=== PATIENT | male | born 1935 | race Caucasian/White ===

== ENCOUNTER → 2017-07-04 | Outpatient (CLI) | payer OTHER ==
[~2017-07-04] MED LIST: ACET-1256 PO; ASPI81TA28 PO; ATV5 PO; FLEC100T21 PO; LVQ500 PO; METH1TAB66 PO; METO25TA3 PO; MULT-506 PO
--- NOTE | 2017-07-04 14:26 | DIAGNOSTIC IMAGING REPORT ---
(CHEST) THORAX WITHOUT CLINICAL HISTORY: R91.1 Solitary pulmonary [id number] COMPARISON STUDY: 01/24/2016 CT DOSE: 302.57 mGy.cm TECHNIQUE: CT of the thorax was performed from the thoracic inlet to the lung bases. Images are reviewed in the axial, sagittal, and coronal planes. IV contrast was not administered for this examination. A dose lowering technique was utilized adhering to the principles of ALARA. FINDINGS: Thyroid: Imaged portions of the thyroid gland are normal in appearance. Thoracic aorta: There is ectasia of the ascending thoracic aorta which measures 39 mm. Heart: There are minimal coronary artery calcifications. Lungs and pleural spaces: No pleural effusions are visualized. There is underlying pulmonary emphysema. There is biapical pleural and parenchymal scarring with areas of calcification. There is a stable 5 mm solid left lower lobe pulmonary nodule, as visualized in image #[id number]. There is a stable 10 mm pleural-based opacity within the right lower lobe as visualized in image #[id number]. This may represent focal atelectasis. There is a stable perifissural 9 x 3 mm right upper lobe nodule as visualized in image #[id number]. Mediastinum: There is no mediastinal lymphadenopathy. Neda: There is no evidence of pathologic hilar adenopathy given the limitations of a noncontrast study. Axilla: There is no evidence of pathologic axillary lymphadenopathy Upper abdomen: Partially visualized upper abdominal viscera is within normal limits. Skeletal structures: There are no lytic or blastic osseous lesions. IMPRESSION: 1. Pulmonary emphysema 2. Stable biapical pleural and parenchymal scarring with areas of calcification and traction bronchiectasis 3. Stable bilateral pulmonary nodules 4. Mild dilatation of the ascending thoracic aorta which measures 39 mm. This represents an increase from 36 mm as measured in January 2016 Electronically signed by: Gustavo Duvall M.D. 07/04/2017 2:24 PM Dictated Date/Time: 07/04/2017 2:17 PM
== END | disposition home or self-care (01) ==
LOC: C.CTS 13:43
PROVIDERS: ATTEND Internal Medicine
DX: R91.1 Solitary pulmonary nodule (principal); J43.9 Emphysema, unspecified

== ENCOUNTER 2017-12-02 13:11 | Emergency (ER) | payer OTHER ==
[~2017-12-02] VITALS: Ht 185.4 cm; Wt 73.0 kg
[2017-12-02] MEDS ORDERED: SODIUM CHLORIDE 0.9% 1000ML 1,000 ML IV SCH (13:22)
[2017-12-02 13:23] VITALS: TEMP 36.4; Ht 185.4 cm; Wt 73.0 kg
[2017-12-02 13:26] VITALS: O2SAT 93
--- NOTE | 2017-12-02 13:28 | EMERGENCY ROOM VISIT NOTE ---
History Report prepared by Bryanna: Sarkis Eduardo Under the Supervision of: Dr. Bryn Martinez M.D. First contact with patient: 13:13 Stated Complaint: DIZZINESS/HEADACHE History of Present Illness The patient is an 82 year old male who presents to the Emergency Room with complaints of an episode of dizziness occurring last night. The patient states that he developed dizziness last night and had difficulty walking and keeping his balance. He notes that his dizziness began last night when he stood up from a chair. He reports that he also has a headache and diaphoresis. The patient states that he feels as though he has vertigo despite having no prior history of vertigo. He notes that he does not feel as though the room is spinning and is not currently dizzy. He reports that he is not on any blood thinners. He rates his pain as a 6-7/10. Source of History: patient Onset: last night Position: head Symptom Intensity: 6-7/10 Quality: other (dizziness) Timing: other (an episode) Associated Symptoms: + headache, + diaphoresis Review of Systems See HPI for pertinent positives & negatives. A total of 10 systems reviewed and were otherwise negative. Past Medical & Surgical Medical Problems: (1) Hx-Testicular Malignancy (2) Hyperlipidemia Nec/Nos (3) Hyperplasia Of Prostate (4) Hypertension Nos (5) Hypothyroidism Nos (6) Personal History Of Pulmonary Embolism Social History Problems: (1) Hx-Venous Thrombosis&Embolism Family History Cancer Kidney disease Kidney stones Social History Smoking Status: Former Smoker Alcohol Use: none Marital Status: Housing Status: lives with family Occupation Status: retired Current/Historical Medications Scheduled Aspirin (Aspirin Ec), 81 MG PO DAILY Flecainide (Tambocor), 100 MG PO BID Metoprolol Succ (Toprol Xl) (Toprol-Xl), 25 MG PO DAILY Multivitamin (Multivitamin), 1 TAB PO DAILY Scheduled PRN Lorazepam (Ativan), 25 MG PO DAILY PRN for Anxiety Meclizine Hcl (Meclizine Hcl), 1 TAB PO TID PRN for Dizziness or Vertigo Allergies Coded Allergies: No Known Allergies (Verified , 08/26/13) Physical Exam Vital Signs Date Time Temp Pulse Resp B/P (MAP) Pulse Ox O2 Delivery O2 Flow Rate FiO2 12/02/17 15:48 59 96/63 95 12/02/17 14:33 70 116/63 90 Room Air 12/02/17 13:26 93 Room Air 12/02/17 13:23 36.4 58 145/79 95 Room Air 12/02/17 13:21 66 Physical Exam GENERAL: Awake, alert, well-appearing, in no acute distress HENT: Normocephalic, atraumatic. Oropharynx unremarkable. EYES: Normal conjunctiva. Sclera non-icteric. NECK: Supple. No nuchal rigidity. FROM. No JVD. RESPIRATORY: Clear to auscultation. CARDIAC: Regular rate, normal rhythm. Extremities warm and well perfused. Pulses equal. ABDOMEN: Soft, non-distended. No tenderness to palpation. No rebound or guarding. No masses. RECTAL: Deferred. MUSCULOSKELETAL: Chest examination reveals no tenderness. The back is symmetrical on inspection. 2in x 2in abrasion to the right side of back. There is no CVA tenderness to palpation. No joint edema. LOWER EXTREMITIES: Calves are equal size bilaterally and non-tender. No edema. No discoloration. NEURO: Normal sensorium. No sensory or motor deficits noted, ataxic when walking. SKIN: No rash or jaundice noted. Medical Decision & Procedures ER Provider Diagnostic Interpretation: Radiology results as stated below per my review and radiologist interpretation: HEAD WITHOUT CONTRAST (CT) FINDINGS: Car Wash Supervisor topogram: Unremarkable. Ventricles and sulci normal in size. Brain parenchyma normal in appearance with preserved elkins-white differentiation. No mass effect or midline shift. No hemorrhage or acute territorial infarct. No extra-axial fluid collection. Paranasal sinuses and mastoid air cells clear. Calvarium intact. IMPRESSION: 1. No acute intracranial abnormality. Electronically signed by: Joe Higuera M.D. 12/02/2017 2:05 PM CHEST ONE VIEW PORTABLE FINDINGS: Atherosclerosis of the aortic arch. Cardiac silhouette normal in size. Architectural distortion, peripheral nodularity, and overlying pleural thickening at the apices, which has slightly evolved since the prior exam. No new focal opacity. No large effusion or pneumothorax. Osseous structures normal. IMPRESSION: 1. Chronic biapical pleural-parenchymal scarring. No convincing evidence of acute cardiopulmonary disease. Electronically signed by: Joe Higuera M.D. 12/02/2017 1:43 PM NECK ANGIO WITH CONTRAST FINDINGS: Car Wash Supervisor topogram: Unremarkable. Aortic arch: Atherosclerosis of the three-vessel aortic arch. Innominate artery: Patent. Right common carotid artery: Patent. Right internal and external carotid arteries: Right carotid bifurcation patent. Right internal and external carotid arteries widely patent. Left common carotid artery: Patent. Left internal and external carotid arteries: Left carotid bifurcation patent. Left internal and external carotid arteries widely patent. Left subclavian artery: Patent. Vertebral arteries: Codominant vertebral arteries. Origins and courses of the bilateral vertebral arteries patent. Other: Limited intracranial evaluation within normal limits. Soft tissues of the neck normal allowing for the phase of contrast. Degenerative changes of the cervical spine. Extensive paraseptal emphysema with pleural parenchymal scarring of the apical greater on the left. IMPRESSION: 1. No evidence of dissection, focal vessel occlusion, or significant stenosis of the cervical arteries. 2. Extensive pleural-parenchymal scarring at the lung apices with paraseptal emphysema. Electronically signed by: Joe Higuera M.D. 12/02/2017 2:15 PM HEAD ANGIO WITH CONTRAST FINDINGS: Car Wash Supervisor topogram: Unremarkable. Anterior circulation: Atherosclerosis of the cavernous segments of the internal carotid arteries without significant narrowing. Anterior and middle cerebral arteries patent. Fenestrated anterior communicating artery. Posterior circulation: Codominant vertebral arteries. Intradural portions of the vertebral arteries patent. Posterior inferior cerebellar arteries patent. Basilar artery patent. Anterior inferior cerebellar arteries poorly visualized. Diminutive left superior cerebellar artery. Patent right superior cerebellar artery. Patent right posterior cerebral artery. origin of the left posterior cerebral artery. Patent right posterior communicating artery. Dural venous sinuses: Patent. IMPRESSION: 1. No evidence of aneurysm, focal vessel occlusion, or significant stenosis of the intracranial arteries. Electronically signed by: Joe Higuera M.D. 12/02/2017 2:10 PM Laboratory Results 12/02/17 13:28 Red Blood Count 4.76, Mean Corpuscular Volume 92.2, Mean Corpuscular Hemoglobin 31.1, Mean Corpuscular Hemoglobin Concent 33.7, Mean Platelet Volume 9.6, Neutrophils (%) (Auto) 70.3, Lymphocytes (%) (Auto) 19.3, Monocytes (%) (Auto) 7.1, Eosinophils (%) (Auto) 2.7, Basophils (%) (Auto) 0.4, Neutrophils # (Auto) 3.87, Lymphocytes # (Auto) 1.06, Monocytes # (Auto) 0.39, Eosinophils # (Auto) 0.15, Basophils # (Auto) 0.02 12/02/17 13:28 Test 12/02/17 13:22 12/02/17 13:28 12/02/17 13:30 12/02/17 13:33 White Blood Count 5.50 K/uL (4.8-10.8) Red Blood Count 4.76 M/uL (4.7-6.1) Hemoglobin 14.8 g/dL (14.0-18.0) Hematocrit 43.9 % (42-52) Mean Corpuscular Volume 92.2 fL (80-100) Mean Corpuscular Hemoglobin 31.1 pg (25-34) Mean Corpuscular Hemoglobin Concent 33.7 g/dl (32-36) Platelet Count 158 K/uL (130-400) Mean Platelet Volume 9.6 fL (7.4-10.4) Neutrophils (%) (Auto) 70.3 % Lymphocytes (%) (Auto) 19.3 % Monocytes (%) (Auto) 7.1 % Eosinophils (%) (Auto) 2.7 % Basophils (%) (Auto) 0.4 % Neutrophils # (Auto) 3.87 K/uL (1.4-6.5) Lymphocytes # (Auto) 1.06 K/uL (1.2-3.4) Monocytes # (Auto) 0.39 K/uL (0.11-0.59) Eosinophils # (Auto) 0.15 K/uL (0-0.5) Basophils # (Auto) 0.02 K/uL (0-0.2) RDW Standard Deviation 43.5 fL (36.4-46.3) RDW Coefficient of Variation 13.0 % (11.5-14.5) Immature Granulocyte % (Auto) 0.2 % Immature Granulocyte # (Auto) 0.01 K/uL (0.00-0.02) Prothrombin Time 10.0 SECONDS (9.0-12.0) Prothromb Time International Ratio 1.0 (0.9-1.1) Activated Partial Thromboplast Time 25.0 SECONDS (21.0-31.0) Partial Thromboplastin Ratio 1.0 Est Creatinine Clear Calc Drug Dose 51.6 ml/min Estimated GFR () 68.1 Estimated GFR (Non- 58.7 BUN/Creatinine Ratio 14.3 (10-20) Calcium Level 8.7 mg/dl (8.5-10.1) Magnesium Level 2.1 mg/dl (1.8-2.4) Total Creatine Kinase 73 U/L (39-308) Creatine Kinase MB 1.2 ng/ml (0.5-3.6) Creatine Kinase MB Ratio 1.6 (0-3.0) Troponin I < 0.015 ng/ml (0-0.045) Bedside Prothrombin Time INR 1.0 (0.9-1.1) Bedside Hemoglobin 13.9 g/dl (14.0-18.0) Bedside Hematocrit 41 % (42-52) Bedside Sodium 141 mEq/L (135-144) Bedside Potassium 3.8 mEq/L (3.3-5.0) Bedside Chloride 103 mEq/L (101-112) Bedside Total CO2 27 mEq/l (24-31) Anion Gap 15.0 mmol/L (16-25) Bedside Blood Urea Nitrogen 17 mg/dl (7-18) Bedside Creatinine 1.1 mg/dl (0.6-1.3) Bedside Glucose (other) 114 mg/dl (70-99) Bedside Ionized Calcium (Rita) 1.12 mmol/l (1.12-1.32) Labs reviewed by ED physician. Medications Administered Medications (Trade) Dose Ordered Sig/Ivis Route Start Time Stop Time Status Last Admin Dose Admin Sodium Chloride 1,000 ml @ 50 mls/hr Q20H IV 12/02/17 13:22 12/02/17 16:03 DC 12/02/17 13:35 50 MLS/HR Acetaminophen (Tylenol Tab) 1,000 mg NOW STAT PO 12/02/17 13:40 12/02/17 13:41 DC 12/02/17 14:02 1,000 MG Sodium Chloride 500 ml @ 999 mls/hr Q31M STAT IV 12/02/17 13:40 12/02/17 14:10 DC 12/02/17 14:00 999 MLS/HR Meclizine HCl (Antivert Tab) 25 mg NOW STAT PO 12/02/17 14:16 12/02/17 14:19 DC 12/02/17 14:31 25 MG Diazepam (Valium Inj) 5 mg NOW STAT IV 12/02/17 14:16 3/25/18 14:19 DC 12/02/17 14:31 5 MG Ondansetron HCl (Zofran Inj) 4 mg NOW STAT IV 12/02/17 14:16 12/02/17 14:19 DC 12/02/17 14:31 4 MG ECG Per My Interpretation Indication: other (dizziness) Rate (beats per minute): 58 Rhythm: sinus bradycardia Findings: 1st degree AV block, other (No ST elevation/depression, normal axis) ED Course 1318: Past medical records reviewed. The patient was evaluated in room A12. A complete history and physical examination was performed. 1340: Acetaminophen 1000mg PO, Sodium Chloride 500 ml @ 999 mls/hr 1416: Zofran Inj 4mg IV, Valium Inj 4mg IV, Antivert HCl 25mg PO 1427: I reevaluated and updated the patient. 1522: Upon reexamination the patient is stable. I discussed results and treatment plan with the patient. He verbalizes agreement and understanding. The patient is ready for discharge. Medical Decision Differential diagnosis: Etiologies such as benign positional vertigo, dehydration, hypovolemia, anemia, tumor, infection, hypoglycemia, electrolyte abnormalities, cardiac sources, intracerebral event, toxicologic, neurologic, as well as others were entertained. This is an 82-year-old male who presents the emergency department complaining of sudden onset of dizziness that started last evening. The patient's dizziness appears to be related to movement of his head and gets better with time. Based on this the patient was given normal saline bolus, meclizine, Zofran as well as Valium. Repeat examination with improvement the patient's symptoms. The patient was sent for CAT scan of the head along with CTA of the head and neck. This did not show any evidence of acute stroke. After receiving the medications the patient was ambulated by nursing staff as well as myself and he had total improvement. I did recommend admission overconcerns that this patient may fall however he feels he is well enough to be discharged home. I recommended follow-up with ear nose and throat and the patient was placed on meclizine for home. Patient was in agreement with the treatment plan. Medication Reconcilliation Current Medication List: was personally reviewed by me Blood Pressure Screening Patient's blood pressure: Normal blood pressure Blood pressure disposition: Did not require urgent referral Impression Primary Impression: Vertigo Scribe Attestation The scribe's documentation has been prepared under my direction and personally reviewed by me in its entirety. I confirm that the note above accurately reflects all work, treatment, procedures, and medical decision making performed by me. Departure Information Dispostion Home / Self-Care Prescriptions Meclizine Hcl (MECLIZINE HCL) 25 Mg Tab 1 TAB PO TID Y for Dizziness or Vertigo for 10 Days, #30 TAB Prov: Bryn Martinez MD 12/02/17 Referrals Joe Louis M.D. (PCP) Forms HOME CARE DOCUMENTATION FORM, IMPORTANT VISIT INFORMATION Patient Instructions My [facility] Additional Instructions Youtube "Maeve Gonzales" You received narcotic or benzodiazepene medication while in the emergency room today. This is an addictive medication that may cause drowziness as well as constipation. Do not drive, operate heavy machinery, or drink alcohol under the influence of this medication. You have been examined and treated today on an emergency basis only. This is not a substitute for, or an effort to provide, complete comprehensive medical care. It is impossible to recognize and treat all injuries or illnesses in a single emergency department visit. It is therefore important that you follow up closely with Dr Louis. Call as soon as possible for an appointment. Thank you for your time and consideration. I look forward to speaking with you again soon. Please don't hesitate to call us if you have any questions.
[2017-12-02] MEDS ORDERED: SODIUM CHLORIDE 0.9% 500ML 500 ML IV STA (13:40)
[2017-12-02] MEDS ORDERED: ACETAMINOPHEN 500 MG TAB PO STA (13:40)
--- NOTE | 2017-12-02 13:45 | DIAGNOSTIC IMAGING REPORT ---
CHEST ONE VIEW PORTABLE CLINICAL HISTORY: 82 years-old Male presenting with Stroke. TECHNIQUE: AP view of the chest was obtained. COMPARISON: 01/12/2016. FINDINGS: Atherosclerosis of the aortic arch. Cardiac silhouette normal in size. Architectural distortion, peripheral nodularity, and overlying pleural thickening at the apices, which has slightly evolved since the prior exam. No new focal opacity. No large effusion or pneumothorax. Osseous structures normal. IMPRESSION: 1. Chronic biapical pleural-parenchymal scarring. No convincing evidence of acute cardiopulmonary disease. Electronically signed by: Joe Higuera M.D. 12/02/2017 1:43 PM Dictated Date/Time: 12/02/2017 1:42 PM
[2017-12-02 13:47] LABS: ISTAT CREATININE 1.1 mg/dl (0.6-1.3); ISTAT IONIZED CALCIUM 1.12 mmol/l (1.12-1.32); ISTAT POTASSIUM 3.8 mEq/L (3.3-5.0)
[2017-12-02 13:47] LABS: BASO % 0.4 %; BASO ABS # 0.02 K/uL (0-0.2); EOS % 2.7 %; EOS ABS # 0.15 K/uL (0-0.5); HEMATOCRIT 43.9 % (42-52); HEMOGLOBIN 14.8 g/dL (14.0-18.0); IG# 0.01 K/uL (0.00-0.02); LYMPH % 19.3 %; LYMPH ABS # 1.06 K/uL (1.2-3.4); MEAN CELL VOLUME 92.2 fL (80-100); MEAN CORPUSCULAR HEMOGLOBIN 31.1 pg (25-34); MEAN CORPUSCULAR HGB CONC 33.7 g/dl (32-36); MEAN PLATELET VOLUME 9.6 fL (7.4-10.4); MONO % 7.1 %; MONO ABS # 0.39 K/uL (0.11-0.59); NEUT % 70.3 %; NEUT ABS # 3.87 K/uL (1.4-6.5); PLATELET COUNT 158 K/uL (130-400); RED CELL DISTRIBUTION WIDTH SD 43.5 fL (36.4-46.3)
[2017-12-02 13:59] LABS: BLOOD UREA NITROGEN 17 mg/dl (7-18); CALCIUM 8.7 mg/dl (8.5-10.1); CARBON DIOXIDE 26 mmol/L (21-32); CREATININE 1.16 mg/dl (0.60-1.40); GLUCOSE 111 mg/dl (70-99); POTASSIUM 3.8 mmol/L (3.5-5.1); SODIUM 140 mmol/L (136-145)
[2017-12-02 14:04] LABS: CKMB 1.2 ng/ml (0.5-3.6)
--- NOTE | 2017-12-02 14:06 | DIAGNOSTIC IMAGING REPORT ---
HEAD WITHOUT CONTRAST (CT) CLINICAL HISTORY: 82 years-old Male presenting with Stroke symptoms, headache, dizziness. TECHNIQUE: Multidetector CT imaging of the head was performed without the use of intravenous contrast. IV contrast: None. A dose lowering technique was used consistent with the principles of ALARA (as low as reasonably achievable). COMPARISON: Brain MR from 2008. CT DOSE (mGy.cm): The estimated cumulative dose is 1167.76 inclusive of the CTA head and neck. FINDINGS: Restaurant Crew Person topogram: Unremarkable. Ventricles and sulci normal in size. Brain parenchyma normal in appearance with preserved elkins-white differentiation. No mass effect or midline shift. No hemorrhage or acute territorial infarct. No extra-axial fluid collection. Paranasal sinuses and mastoid air cells clear. Calvarium intact. IMPRESSION: 1. No acute intracranial abnormality. Electronically signed by: Joe iHguera M.D. 12/02/2017 2:05 PM Dictated Date/Time: 12/02/2017 2:04 PM
[2017-12-02] MEDS ORDERED: LORA-741 PO (14:10)
--- NOTE | 2017-12-02 14:11 | DIAGNOSTIC IMAGING REPORT ---
HEAD ANGIO WITH CONTRAST CLINICAL HISTORY: 82 years-old Male presenting with stroke symptoms, headache, dizziness. TECHNIQUE: Multidetector CT angiography of the head was performed after the administration of intravenous contrast. 3-D volumetric and/or maximum intensity projection (MIP) images were subsequently reconstructed for review. IV contrast: Optiray 320. A dose lowering technique was used consistent with the principles of ALARA (as low as reasonably achievable). COMPARISON: None. CT DOSE (mGy.cm): The estimated cumulative dose is 1167.76 inclusive of CTA neck and CT head. FINDINGS: Edi Manager topogram: Unremarkable. Anterior circulation: Atherosclerosis of the cavernous segments of the internal carotid arteries without significant narrowing. Anterior and middle cerebral arteries patent. Fenestrated anterior communicating artery. Posterior circulation: Codominant vertebral arteries. Intradural portions of the vertebral arteries patent. Posterior inferior cerebellar arteries patent. Basilar artery patent. Anterior inferior cerebellar arteries poorly visualized. Diminutive left superior cerebellar artery. Patent right superior cerebellar artery. Patent right posterior cerebral artery. origin of the left posterior cerebral artery. Patent right posterior communicating artery. Dural venous sinuses: Patent. IMPRESSION: 1. No evidence of aneurysm, focal vessel occlusion, or significant stenosis of the intracranial arteries. Electronically signed by: Joe Higuera M.D. 12/02/2017 2:10 PM Dictated Date/Time: 12/02/2017 2:05 PM
[2017-12-02] MEDS ORDERED: ONDANSETRON INJ 2 MG/ML 2 ML VIAL IV STA (14:16)
[2017-12-02] MEDS ORDERED: DIAZEPAM INJ 5 MG/ML 2 ML CARP IV STA (14:16)
[2017-12-02] MEDS ORDERED: MECLIZINE HCL 25 MG TAB PO STA (14:16)
--- NOTE | 2017-12-02 14:16 | DIAGNOSTIC IMAGING REPORT ---
NECK ANGIO WITH CONTRAST CLINICAL HISTORY: 82 years-old Male presenting with stroke symptoms, headache, dizziness. TECHNIQUE: Multidetector CT angiography of the neck was performed after the administration of intravenous contrast. 3-D volumetric and/or maximum intensity projection (MIP) images were subsequently reconstructed for review. IV contrast: 118 mL of Optiray 320. A dose lowering technique was used consistent with the principles of ALARA (as low as reasonably achievable). Stenosis measurements were based on NASCET-like criteria. COMPARISON: None. CT DOSE (mGy.cm): The estimated cumulative dose is 1167.76 mGy.cm. FINDINGS: Sole Layer topogram: Unremarkable. Aortic arch: Atherosclerosis of the three-vessel aortic arch. Innominate artery: Patent. Right common carotid artery: Patent. Right internal and external carotid arteries: Right carotid bifurcation patent. Right internal and external carotid arteries widely patent. Left common carotid artery: Patent. Left internal and external carotid arteries: Left carotid bifurcation patent. Left internal and external carotid arteries widely patent. Left subclavian artery: Patent. Vertebral arteries: Codominant vertebral arteries. Origins and courses of the bilateral vertebral arteries patent. Other: Limited intracranial evaluation within normal limits. Soft tissues of the neck normal allowing for the phase of contrast. Degenerative changes of the cervical spine. Extensive paraseptal emphysema with pleural parenchymal scarring of the apical greater on the left. IMPRESSION: 1. No evidence of dissection, focal vessel occlusion, or significant stenosis of the cervical arteries. 2. Extensive pleural-parenchymal scarring at the lung apices with paraseptal emphysema. Electronically signed by: Joe Higuera M.D. 12/02/2017 2:15 PM Dictated Date/Time: 12/02/2017 2:11 PM
[2017-12-02] MEDS ORDERED: MECL1TAB42 PO (15:17)
[2017-12-02 15:48] VITALS: BP 96/63; PULSE 59; O2SAT 95
== END 2017-12-02 15:50 | disposition home or self-care (01) ==
LOC: EDBD 13:11 → C.EDA 13:12
DX: R42 Dizziness and giddiness (principal); I10 Essential (primary) hypertension; Z87.891 Personal history of nicotine dependence; Z86.711 Personal history of pulmonary embolism; Z79.82 Long term (current) use of aspirin; Z84.1 Family history of disorders of kidney and ureter